=== PATIENT | female | born 1940 | race Caucasian/White ===

== ENCOUNTER 2019-07-09 10:48 | Emergency (ER) | payer OTHER ==
[~2019-07-09] VITALS: Ht 165.1 cm; Wt 74.8 kg
--- NOTE | 2019-07-09 10:50 | NUR ---
Patient to ER bed 02 to gown for evaluation. Side rails up.
[2019-07-09 11:00] VITALS: BP_SYST 124
--- NOTE | 2019-07-09 11:10 | NUR ---
ER at bedside examining patient.
--- NOTE | 2019-07-09 11:15 | NUR ---
Pt came to ER c/o LLE redness and pain. Also states having weakness and diarrhea since 07/07. Pt is currently resting and comfortable on neurourologist.
[2019-07-09] MEDS ORDERED: FER300L PO (11:18)
[2019-07-09] MEDS ORDERED: FURO-150 PO (11:18)
[2019-07-09] MEDS ORDERED: VITA-285 PO (11:18)
[2019-07-09] MEDS ORDERED: CHOL200041 PO (11:18)
[2019-07-09] MEDS ORDERED: ASA81 PO (11:18)
[2019-07-09] MEDS ORDERED: CALC200T47 PO (11:18)
[2019-07-09] MEDS ORDERED: ALLO-57 PO (11:18)
[2019-07-09] MEDS ORDERED: ARED2 PO (11:18)
[2019-07-09] MEDS ORDERED: PRAV80TA PO (11:18)
[2019-07-09] MEDS ORDERED: METO25TA3 PO (11:18)
[2019-07-09] MEDS ORDERED: LOSA25TA3 PO (11:18)
[2019-07-09] MEDS ORDERED: LEVO50TA8 PO (11:18)
[2019-07-09] MEDS ORDERED: SENN-104 PO (11:18)
[2019-07-09] MEDS ORDERED: UBID50TA3 PO (11:18)
--- NOTE | 2019-07-09 11:18 | NUR ---
Medication reconciliation completed with information provided by FAMILY. Any prior medication reconciliation on file was reviewed and corrected.
--- NOTE | 2019-07-09 11:28 | NUR ---
Bedside xray completed
[2019-07-09 11:29] LABS: BASOPHILS % (AUTO) 0.3 % (0.0-2.0); EOSINOPHILS % (AUTO) 0.1 % (0.0-4.0); HEMOGLOBIN 12.7 g/dL (12.0-16.0); LYMPHOCYTES # (AUTO) 0.6 K/uL (1.0-5.5); LYMPHOCYTES % (AUTO) 6.1 % (20.5-51.5); MEAN CORPUSCULAR HEMOGLOBIN 34 pg (27-31); MEAN CORPUSCULAR HGB CONC 34 % (32-36); MEAN CORPUSCULAR VOLUME 99 fL (79.0-98.0); MONOCYTES # (AUTO) 0.3 K/uL (0.0-1.0); MONOCYTES % (AUTO) 2.8 % (1.7-9.3); NEUTROPHILS % (AUTO) 90.7 % (40.0-70.0); PLATELET COUNT (AUTO) 115 K/uL (130-430); RED BLOOD CELL COUNT(AUTO) 3.73 MIL/uL (4.2-6.2); RED CELL DISTRIBUTION WIDTH 14.4 % (9.0-15.0); WHITE BLOOD COUNT (AUTO) 9.9 K/uL (4.8-10.8)
[2019-07-09 12:04] LABS: ANION GAP 11 (5-15); CALCIUM 8.8 mg/dL (8.4-11.0); CHLORIDE 97 mmol/L (98-107); CREATININE 2.26 mg/dL (0.55-1.30); GLUCOSE 228 mg/dL (70-99); POTASSIUM 3.8 mmol/L (3.5-5.1); SODIUM SERUM 132 mmol/L (136-145); UREA NITROGEN, BLOOD 66 mg/dL (8-21)
[2019-07-09 12:08] LABS: PROTHROMBIN TIME 9.6 SECS (9.5-12.5)
[2019-07-09 12:09] LABS: ALANINE AMINOTRANSFERASE 46 U/L (12-78); ALBUMIN 3.2 g/dL (3.4-4.8); ASPARTATE AMINOTRANSFERASE 40 U/L (10-37)
[2019-07-09 12:29] LABS: C-REACTIVE PROTEIN QUANT 39.6 mg/dL (0-0.5)
[2019-07-09] MEDS ORDERED: cefTRIAXone 1 GM in LIDOCAINE 1%, 20 ML MDV 2.1 ML IM ONE (13:00)
[2019-07-09] MEDS ORDERED: NACL 0.9% 1,000 ML IV ONE (13:00)
[2019-07-09] MEDS ORDERED: cefTRIAXone 1 GM IVPB PREMIX 50 ML IV ONE (13:00)
--- NOTE | 2019-07-09 13:18 | NUR ---
# 24 gauge angiocath placed to right hand. Use of asceptic technique. Opsite placed over site. Blood return noted. Blood for lab drawn from site. Flushed with 10 cc of normal saline. No evidence of infiltration noted. Patient tolerated well.
--- NOTE | 2019-07-09 14:01 | NUR ---
Dr. Welch speaking w/ the pt and her daughter
[2019-07-09 14:21] VITALS: BP_SYST 124
--- NOTE | 2019-07-09 14:22 | NUR ---
Patient given written and verbal discharge instructions and verbalizes understanding. ER MD discussed with patient the results and treatment provided. Patient in stable condition. ID arm band removed. IV catheter removed intact and dressing applied, no active bleeding. Rx of Clindamysin and Hollis given. Patient educated on pain management and to follow up with PMD. Pain Scale 3/10. Opportunity for questions provided and answered. Medication side effect fact sheet provided.
== END 2019-07-09 14:22 | disposition home or self-care (01) ==
LOC: SED 10:48
DX: L03.116 Cellulitis of left lower limb (principal); R53.1 Weakness; Z79.82 Long term (current) use of aspirin; Z79.899 Other long term (current) drug therapy
CPT/HCPCS: 36415; 71045; 80053; 83605; 83880; 85025; 85610; 85730; 86140; 93005; 93971; 96365; 99284; J0696; J7030

== ENCOUNTER 2019-07-12 09:01 | Inpatient (IN) | payer OTHER ==
[~2019-07-12] VITALS: Ht 165.1 cm; Wt 76.2 kg
[~2019-07-12 09:01] MED LIST: ALLO-57 PO; ARED2 PO; ASA81 PO; CALC200T47 PO; CHOL200041 PO; FER300L PO; FURO-150 PO; LEVO50TA8 PO; LOSA25TA3 PO; METO25TA3 PO; PRAV80TA PO; SENN-104 PO; UBID50TA3 PO; VITA-285 PO
[2019-07-12 09:10] VITALS: BP_SYST 135
--- NOTE | 2019-07-12 09:26 | NUR ---
Patient to ER bed 02 to gown for evaluation. Side rails up.
--- NOTE | 2019-07-12 09:33 | NUR ---
Note juan luis in ED - 07/12/19 at 0934 by [email or web address] Patient to [place] [phone] to hank for evaluation. Side rails up.
--- NOTE | 2019-07-12 09:35 | NUR ---
Patient arrived in the ED accompanied by her daughter, c/o pain and redness on the LLE. Patient was seen last Friday for it; progressively getting worse per patient. She's taking Cephalexin and Clindamycin. Denied any recent injury or trauma. Denied any fevers, chills, N/V. Patient is alert and oriented x4, respirations even and unlabored, speaking in full sentences, ambulating using a wheelchair. VSS, pain level 7/10. Daughter at bedside. Informed of the wait time. INstructed to notify ED staff for any changes in condition or worsening of symptoms. Patient verbalized understanding.
--- NOTE | 2019-07-12 09:39 | NUR ---
ER Dr. Long at bedside examining patient.
[2019-07-12] MEDS ORDERED: VANCOMYCIN HCL 1,000 MG in D5W 250 ML IV ONE (09:45)
[2019-07-12] MEDS ORDERED: PIPERACILLIN/TAZO 3.38 GM in D5W 50 ML IV ONE (09:45)
[2019-07-12] MEDS ORDERED: PIPERACILLIN/TAZOBACTAM 3.375 GM/VIAL (ZOSYN) IV ONE (10:30)
[2019-07-12] MEDS ORDERED: VANCOMYCIN HCL 1000 MG/VIAL IV ONE (10:31)
--- NOTE | 2019-07-12 10:39 | NUR ---
# 24 gauge angiocath placed to MANOLO. Use of asceptic technique. Opsite placed over site. Blood return noted. Flushed with 10 cc of normal saline. No evidence of infiltration noted. Patient tolerated well.
--- NOTE | 2019-07-12 10:40 | NUR ---
electrocardiographic technician at bedside collecting blood specimen. Patient tolerated the procedure well.
--- NOTE | 2019-07-12 10:48 | NUR ---
Administered Zosyn IVPB and Vancomycin IV per protocol as ordered by Dr. Long. Patient tolerated the medications well.
[2019-07-12 11:21] LABS: BASOPHILS % (AUTO) 0.3 % (0.0-2.0); EOSINOPHILS % (AUTO) 0.6 % (0.0-4.0); HEMATOCRIT 33.5 % (36-48); HEMOGLOBIN 11.6 g/dL (12.0-16.0); LYMPHOCYTES # (AUTO) 0.9 K/uL (1.0-5.5); LYMPHOCYTES % (AUTO) 11.2 % (20.5-51.5); MEAN CORPUSCULAR HEMOGLOBIN 34 pg (27-31); MEAN CORPUSCULAR HGB CONC 35 % (32-36); MEAN CORPUSCULAR VOLUME 99 fL (79.0-98.0); MONOCYTES # (AUTO) 0.3 K/uL (0.0-1.0); MONOCYTES % (AUTO) 3.9 % (1.7-9.3); PLATELET COUNT (AUTO) 152 K/uL (130-430); RED CELL DISTRIBUTION WIDTH 14.3 % (9.0-15.0); WHITE BLOOD COUNT (AUTO) 8.3 K/uL (4.8-10.8)
[2019-07-12 11:51] LABS: ANION GAP 11 (5-15); CALCIUM 8.8 mg/dL (8.4-11.0); CHLORIDE 99 mmol/L (98-107); CREATININE 1.21 mg/dL (0.55-1.30); GLUCOSE 212 mg/dL (70-99); POTASSIUM 3.8 mmol/L (3.5-5.1); SODIUM SERUM 134 mmol/L (136-145); UREA NITROGEN, BLOOD 28 mg/dL (8-21)
[2019-07-12 11:56] LABS: ALANINE AMINOTRANSFERASE 99 U/L (12-78); ALBUMIN 2.7 g/dL (3.4-4.8); ASPARTATE AMINOTRANSFERASE 52 U/L (10-37); TOTAL BILIRUBIN 1.1 mg/dL (0.0-1.0)
[2019-07-12 12:10] LABS: BILIRUBIN,URINE 1+ (NEGATIVE); BLOOD, URINE 2+ (NEGATIVE); CLARITY/URINE CLOUDY (CLEAR); COLOR,URINE YELLOW (YELLOW); GLUCOSE,URINE NEGATIVE (NEGATIVE); KETONES,URINE NEGATIVE (NEGATIVE); LEUKOCYTE ESTERASE ,URINE 3+ (NEGATIVE); NITRITE, URINE NEGATIVE (NEGATIVE); PH,URINE 5.5 (5.0-8.0); PROTEIN URINE 1+ (NEGATIVE); UROBILINOGEN,URINE 0.2 (0.2-1.0)
[2019-07-12 12:51] LABS: BACTERIA,URINE FEW /HPF (None Seen); RBC,URINE 20-50 /HPF (0-3); WBC,URINE 20-50 /HPF (0-3)
--- NOTE | 2019-07-12 13:10 | NUR ---
Patient will be admitted to care of DR. FLORES. Admitted to MED[facility]UR[facility] unit. Will go to room 134B. Belongings list completed. Complete and up to date summary report printed. SBAR report given to CHRISTOPHER Henderson over the phone with opportunity for questions.
--- NOTE | 2019-07-12 13:20 | NUR ---
ADMISSION PATIENT TRANSFERRED VIA GURNEY. PATIENT SHOWS NO SIGNS OF ANY DISTRESS, BREATHING IS EQUAL AND NON LABORED. EDUCATED INFORMATION ASSOC LIGHT , CALL LIGHT IS WITH PATIENT. NO OTHER NEEDS AT THIS TIME. Addendum: 07/12/19 at 1837 by Loraine Shaver RN PATIENTS GRAND DAUGHTER IS AT BED SIDE.
[2019-07-12 13:29] VITALS: BP_SYST 149
--- NOTE | 2019-07-12 14:04 | NUR ---
CONSULTATION PAGED REASON FOR CONSULTATION:CELLULITIS OF LOWER EXTREMITIES WAS CONSULT CALLED?Y PERSON WHO WAS NOTIFIED:ASHLEY CONSULTING PHYSICIAN:SHON MYLES VISUAL BASIC .NET DEVELOPER SPECIALTY:INFECTIOUS DISEASE VISUAL BASIC .NET DEVELOPER PHONE NUMBER:[phone] REQUESTING PHYSICIAN:MACEY PARKER
[2019-07-12] MEDS ORDERED: VITAMIN B COMPLEX 1 CAP/TAB PO ONE (14:15)
[2019-07-12] MEDS ORDERED: ATORVASTATIN 20 MG TABLET PO ONE (14:15)
[2019-07-12] MEDS ORDERED: CALCIUM 500 MG/TAB PO ONE (14:15)
[2019-07-12] MEDS ORDERED: ASPIRIN 81 MG TAB.CHEW PO ONE (14:15)
[2019-07-12] MEDS ORDERED: METOPROLOL SUCCINATE 25 MG TAB.SR.24H (TOPROL XL) PO ONE (14:15)
[2019-07-12] MEDS ORDERED: SENNOSIDES/DOCUSATE SODIUM 1 TAB TABLET(SENOKOT-S) PO ONE (14:15)
[2019-07-12] MEDS ORDERED: ALLOPURINOL 300 MG TABLET (ZYLOPRIM) PO ONE (14:15)
[2019-07-12] MEDS ORDERED: LEVOTHYROXINE SODIUM 0.05 MG TABLET PO ONE (14:15)
[2019-07-12] MEDS ORDERED: FERROUS SULFATE 300 MG/5 ML UDC PO ONE (14:15)
[2019-07-12] MEDS ORDERED: CHOLECALCIFEROL (VITAMIN D3) 2,000 UNIT TABLET PO ONE (14:15)
[2019-07-12] MEDS ORDERED: CEFEPIME 1 GM in D5W 50 ML IV ONE (15:00)
[2019-07-12 16:00] VITALS: BP_SYST 131
--- NOTE | 2019-07-12 16:00 | NUR ---
MEDICATIONS patient is resting in bed, educated on medications, patient verbalized understanding, no signs of distress at this time, patient tolerating well, fall/safety precautions in place.
--- NOTE | 2019-07-12 18:57 | NUR ---
closing note patient is resting in bed, no signs of distress at this time, IV dressing intact, bed in lowest position, two side rails up, call light within reach, bed alarm on, fall/safety precautions in place, will endorse report to noc shift nurse to continue with care, patient uses bedpan.
[2019-07-12 20:00] VITALS: BP_SYST 132
--- NOTE | 2019-07-12 21:15 | NUR ---
ASSIST WITH USE OF BED THOMAS URINATION YELLOW CLEAR POSITION CHANGE TOLERATED NO SOB NOTED / .
[2019-07-12] MEDS: CHOLECALCIFEROL (VITAMIN D3) 2,000 UNIT TABLET PO SCH (23:29)
[2019-07-12] MEDS: CEFEPIME 1 GM in D5W 50 ML IV SCH (23:29)
[2019-07-12] MEDS: FERROUS SULFATE 300 MG/5 ML UDC PO SCH (23:29)
[2019-07-12] MEDS: SENNOSIDES/DOCUSATE SODIUM 1 TAB TABLET(SENOKOT-S) PO SCH (23:30)
[2019-07-12] MEDS: ENOXAPARIN SODIUM 40 MG/0.4 ML SYRINGE SUBCUT SCH (23:31)
--- NOTE | 2019-07-12 23:49 | NUR ---
MAXIPIME 1 GM IVPB ADMINISTER ORDERED Patient awake alert no ADVERSE REACTION noted call BOTELLO WITH Patient .
[2019-07-12 23:53] VITALS: BP_SYST 137
--- NOTE | 2019-07-13 04:41 | NUR ---
HOURLY ROUNDING patient Resting HOB elevated call oconnor given to patient encourage position change tolerated .
[2019-07-13] MEDS: LEVOTHYROXINE SODIUM 0.05 MG TABLET PO SCH (06:06)
[2019-07-13 08:05] VITALS: BP_SYST 137
[2019-07-13] MEDS: FERROUS SULFATE 300 MG/5 ML UDC PO SCH ×2 (08:47→22:15)
[2019-07-13] MEDS: CALCIUM 500 MG/TAB PO SCH (08:48)
[2019-07-13] MEDS: VITAMIN B COMPLEX 1 CAP/TAB PO SCH (08:48)
[2019-07-13] MEDS: CHOLECALCIFEROL (VITAMIN D3) 2,000 UNIT TABLET PO SCH ×2 (08:48→22:15)
[2019-07-13] MEDS: ALLOPURINOL 300 MG TABLET (ZYLOPRIM) PO SCH (08:49)
[2019-07-13] MEDS: METOPROLOL SUCCINATE 25 MG TAB.SR.24H (TOPROL XL) PO SCH (08:49)
[2019-07-13] MEDS: SENNOSIDES/DOCUSATE SODIUM 1 TAB TABLET(SENOKOT-S) PO SCH ×2 (08:49→22:16)
[2019-07-13] MEDS: ATORVASTATIN 20 MG TABLET PO SCH (08:50)
[2019-07-13] MEDS: ASPIRIN 81 MG TAB.CHEW PO SCH (08:50)
--- NOTE | 2019-07-13 08:50 | NUR ---
Routine Scheduled medications given per order. Patient resting comfortably in bed with no distress noted. Patient stable at this time.
--- NOTE | 2019-07-13 10:26 | NUR ---
Nutrition Update Simone Scale 18 noted. Pt admitted for cellulitis. Diet: regular, cardiac BMI: 28 kg/m2 RD to follow per nutrition care standards.
[2019-07-13 12:25] VITALS: BP_SYST 134; BP_SYST 150
[2019-07-13] MEDS: CEFEPIME 1 GM in D5W 50 ML IV SCH ×2 (12:28→23:30)
--- NOTE | 2019-07-13 12:51 | NUR ---
Wound Evaluation: Wound Consult ordered for Low Simone Score. Patient evaluated for a low Simone score of 18. Patient was awake, alert, oriented and received in a Salvador Bed with an IsoFlex ELISABETH mattress. Patient is able to turn in bed independently. Recommend encourage and assist patient as needed every 2 hours with pillow support. Elevate, off-load and float bilateral heels with pillows. Offload pressure areas with pillows for pressure re-distribution. Perform skin care and monitor skin integrity Q shift. Use moisture barrier cream on moisture susceptible areas QID and PRN for soiling. Place patient on a low air-loss mattress. Skin assessment: 1. Left lower extremity, inferior to knee: Cellulitis, present on admission. Extremity has erythema, calor, and mild nonpitting edema. No odor, no drainage. Recommend: No dressing needed. Continue to monitor extremity every shift. Elevate extremity. Have patient do ankle pumps 10 every hour while awake. 2. Left posterior mid calf: Wound with black scab. No odor, no drainage. Periwound intact. Wound measures 0.8 cm x 0.3 cm. 3. Left posterior mid calf, inferior to Site 2: Wound with black scab. No odor, no drainage. Periwound intact. Wound measures 1.5 cm x 0.4 cm. Recommend: No dressings needed. Continue to monitor sites every shift.
[2019-07-13] MEDS: VANCOMYCIN HCL 1,000 MG in NS 250 ML IV SCH (13:58)
[2019-07-13] MEDS: UBIDECARENONE 100 MG PO SCH (14:00)
[2019-07-13 16:30] VITALS: BP_SYST 134
--- NOTE | 2019-07-13 17:20 | NUR ---
Nutrition Assessment (short note d/t high patient load) A - RD reviewed pertinent nutrition-related info via EMR (physician notes/nursing notes/labs/meds/nursing care trends/care activity). Admission Dx: Cellulitis Pt also found w/ moderate malnutrition per physician notes PMH: HTN, CAD, HLD, gouty arthritis per physician notes Current Diet Order/Nutrition Support: Regular, cardiac x1 day Ht: 5'5" Wt: 167#/76 kg IBW: 125#/57 kg %IBW: 133% UBW: 167#/76 kg %UBW: 100% BMI: 28 kg/m2 (normal -- appropriate for geriatric age) Subjective Info: Nutrition Consult received for L leg cellulitis. Pt seen resting in bed, recently had BM in bed dave this afternoon. RD notified BLASTING WORKER. Pt reported lack of appetite d/t excessive portion sizes. RD recommended to cut portion in half -- pt agreeable. RD modified order in [employer]. Pt reported several vitamin supplementation for general health, but pt was unable to disclose specifics. Anthropometrics verified. No PUs noted, but pt has L leg cellulitis per EMR review. Pt attested to regular diet at home, and no chewing/swallowing difficulties. Pt usually eats 3 small meals throughout the day. Pt declined nutrition education. ESTIMATED NUTRITIONAL NEEDS CALORIES/DAY: 5098-6081 kcal/day (25-30 kcal/kg Adj IBW for geriatric maintenance) PROTEIN/DAY: 74-93 gm/day (1.2-1.5 gm/kg Adj IBW for infection) FLUID/DAY: 1.6-1.9 L/day (1 ml/kcal/day for maintenance) D - Suboptimal PO intakes related to lack of appetite as evidenced by pt report and inability to meet estimated nutritional requirements. I - Recommend continuing regular, cardiac diet. Encourage increase PO intakes. M - Monitor appetite and PO intakes w/ goal of pt meeting at least 75% of estimated nutritional needs, labs trending WNL, normal GI function, and skin integrity/wt maintenance E -Moderate risk; F/U within 3-5 days Addendum: 07/14/19 at [address] CORRECTION: I - Recommend continuing regular, cardiac diet. Encourage increase PO intakes. Consider HgA1c lab draw.
--- NOTE | 2019-07-13 17:25 | NUR ---
Dietitian Recommendations * Recommend continuing regular, cardiac diet. Encourage increase PO intakes. GUNNAR, RD Please refer to Nutrition Assessment for details. Addendum: 07/14/19 at [address] CORRECTION: * Recommend continuing regular, cardiac diet. Encourage increase PO intakes. Consider HgA1c lab draw.
[2019-07-13 19:45] VITALS: BP_SYST 135
--- NOTE | 2019-07-13 19:54 | NUR ---
Patient awake HOB elevated assist encourage position change off loading with pillows comfort measures implemented call oconnor given to patient .
[2019-07-13] MEDS: ENOXAPARIN SODIUM 40 MG/0.4 ML SYRINGE SUBCUT SCH (22:17)
[2019-07-13] MEDS: ACETAMINOPHEN 325 MG TABLET PO PRN (23:28)
[2019-07-13 23:44] VITALS: BP_SYST 132
--- NOTE | 2019-07-13 23:46 | NUR ---
NEW ORDERS DR MARK DALAL FOR PAIN MEDICATION .
--- NOTE | 2019-07-13 23:47 | NUR ---
TYLENOL 650 MG PO GIVEN FOR GENERAL PAIN CONTROL 09/20 CONTINUE TO MONITOR .
--- NOTE | 2019-07-14 02:54 | NUR ---
HOURLY ROUNDING patient Resting call oconnor with Patient chest movement symmetrical verbally Responsive .
[2019-07-14] MEDS: LEVOTHYROXINE SODIUM 0.05 MG TABLET PO SCH (06:08)
--- NOTE | 2019-07-14 07:15 | NUR ---
OPENING NOTE RECEIVED PT RESTING IN BED. CHEST RISE AND FALL NOTED. NO ACUTE DISTRESS NOTED. IV INTACT AND PATENT. NO SIGNS OF INFILTRATION. BED IN LOWEST AND LOCKED POSITION. CALL LIGHT IN REACH. ALL NEEDS MET. CONTINUE TO MONITOR.
[2019-07-14 08:00] VITALS: BP_SYST 120
[2019-07-14] MEDS: UBIDECARENONE 100 MG PO SCH (09:00)
[2019-07-14 09:04] LABS: ALANINE AMINOTRANSFERASE 84 U/L (12-78); ALBUMIN 2.3 g/dL (3.4-4.8); ANION GAP 7 (5-15); ASPARTATE AMINOTRANSFERASE 37 U/L (10-37); CALCIUM 9.1 mg/dL (8.4-11.0); CHLORIDE 99 mmol/L (98-107); CREATININE 1.12 mg/dL (0.55-1.30); GLUCOSE 147 mg/dL (70-99); POTASSIUM 3.6 mmol/L (3.5-5.1); SODIUM SERUM 130 mmol/L (136-145); TOTAL BILIRUBIN 0.8 mg/dL (0.0-1.0); UREA NITROGEN, BLOOD 24 mg/dL (8-21)
--- NOTE | 2019-07-14 09:30 | NUR ---
MD MYLES PAGED FOR CONSULT; AWAITING FOR CALL BACK
[2019-07-14] MEDS: FERROUS SULFATE 300 MG/5 ML UDC PO SCH ×2 (10:00→20:52)
[2019-07-14] MEDS: CHOLECALCIFEROL (VITAMIN D3) 2,000 UNIT TABLET PO SCH ×2 (10:00→20:52)
[2019-07-14] MEDS: VITAMIN B COMPLEX 1 CAP/TAB PO SCH (10:00)
[2019-07-14] MEDS: ALLOPURINOL 300 MG TABLET (ZYLOPRIM) PO SCH (10:00)
[2019-07-14] MEDS: ATORVASTATIN 20 MG TABLET PO SCH (10:01)
[2019-07-14] MEDS: CALCIUM 500 MG/TAB PO SCH (10:01)
[2019-07-14] MEDS: SENNOSIDES/DOCUSATE SODIUM 1 TAB TABLET(SENOKOT-S) PO SCH ×2 (10:01→20:52)
[2019-07-14] MEDS: ASPIRIN 81 MG TAB.CHEW PO SCH (10:01)
[2019-07-14] MEDS: METOPROLOL SUCCINATE 25 MG TAB.SR.24H (TOPROL XL) PO SCH (10:01)
--- NOTE | 2019-07-14 10:02 | NUR ---
meds VITAL SIGNS STABLE. ALL DUE MEDS ADMINISTERED ORDERED, BHAVNA WELL. TEACHING DONE ON MEDICATION AND ASE. ALL NEEDS MET. CONT TO MONITOR
[2019-07-14] MEDS: VANCOMYCIN HCL 1,000 MG in NS 250 ML IV SCH (11:12)
--- NOTE | 2019-07-14 11:29 | NUR ---
MEDS MEDICATIONS ADMINISTERED ORDERED PER MD. TOLERATING WELL. EDUCATION PROVIDED. NO ACUTE DISTRESS NOTED. ALL NEEDS MET. CALL LIGHT IN REACH. FALL AND ASPIRATION PRECAUTIONS IN PLACE. CONTINUE TO MONITOR.
[2019-07-14 12:00] VITALS: BP_SYST 139
[2019-07-14] MEDS: CEFEPIME 1 GM in D5W 50 ML IV SCH (13:11)
--- NOTE | 2019-07-14 13:17 | NUR ---
MEDS MEDICATIONS ADMINISTERED ORDERED PER MD. TOLERATING WELL. EDUCATION GIVEN. NO ACUTE DISTRESS NOTED. ALL NEEDS MET. CALL LIGHT IN REACH. WILL CONTINUE TO MONITOR.
--- NOTE | 2019-07-14 13:30 | NUR ---
SEEN AND EXAMINED BY AT BEDSIDE
[2019-07-14] MEDS: ACETAMINOPHEN 325 MG TABLET PO PRN ×2 (13:59→20:53)
--- NOTE | 2019-07-14 15:40 | NUR ---
NOTE PATIENT STABLE. ASSISTED PATIENT WITH BEDPAN, BHAVNA WELL. SISTER AT BEDSIDE. ALL NEEDS MET. CONT TO MONITOR. CALL LIGHT IN REACH. CONT TO MONITOR
--- NOTE | 2019-07-14 16:30 | NUR ---
WOUND CARE WOUND CARE PROVIDED ORDERED, BHAVNA WELL. CONT TO ELEVATE BILATERAL FEET HEELS ON PILLOWS, BHAVNA WELL. ALL NEEDS MET. CONT TO MONITOR
[2019-07-14 16:59] VITALS: BP_SYST 147
--- NOTE | 2019-07-14 18:57 | NUR ---
CLOSING NOTE PATIENT AWAKE IN BED. STABLE. NO ACUTE DISTRESS. NO SOB. RESPIRATION EVEN AND UNLABORED. SKIN WARM AND DRY TO TOUCH. IV INTACT AND PATENT. CONT TO ELEVATE BILATERAL HEELS. ALL NEEDS MET. CALL LIGHT IN REACH. BED IN LOW AND LOCKED POSITION. SIDERAIL UPX2. WILL ENDORSE TO ONCOMING SHIFT.
[2019-07-14 19:00] VITALS: BP_SYST 145
[2019-07-14 20:00] VITALS: BP_SYST 135
[2019-07-14] MEDS: ENOXAPARIN SODIUM 40 MG/0.4 ML SYRINGE SUBCUT SCH (20:55)
[2019-07-15] VITALS: BP_SYST 146
[2019-07-15] MEDS: CEFEPIME 1 GM in D5W 50 ML IV SCH ×3 (00:33→23:58)
[2019-07-15] MEDS: LEVOTHYROXINE SODIUM 0.05 MG TABLET PO SCH (06:57)
--- NOTE | 2019-07-15 08:00 | NUR ---
RECEIVED AWAKE AND IN NO C/O DISCOMFORT.VSS RESP EVEN AND UNLABORED RECEIVING IV ABX USES BEDPAN WELL CELLULITIS TO LT LEG NOTED.TAKES DIET WELL CONTINUE TO MONITOR CALL BOTELLO IN PLACE
[2019-07-15] MEDS: CHOLECALCIFEROL (VITAMIN D3) 2,000 UNIT TABLET PO SCH ×2 (09:00→20:26)
[2019-07-15] MEDS: SENNOSIDES/DOCUSATE SODIUM 1 TAB TABLET(SENOKOT-S) PO SCH ×2 (09:32→20:26)
[2019-07-15] MEDS: FERROUS SULFATE 300 MG/5 ML UDC PO SCH ×2 (09:32→20:26)
[2019-07-15] MEDS: CALCIUM 500 MG/TAB PO SCH (09:32)
[2019-07-15] MEDS: VITAMIN B COMPLEX 1 CAP/TAB PO SCH (09:32)
[2019-07-15] MEDS: ATORVASTATIN 20 MG TABLET PO SCH (09:32)
[2019-07-15] MEDS: METOPROLOL SUCCINATE 25 MG TAB.SR.24H (TOPROL XL) PO SCH (09:33)
[2019-07-15] MEDS: ALLOPURINOL 300 MG TABLET (ZYLOPRIM) PO SCH (09:34)
[2019-07-15] MEDS: ASPIRIN 81 MG TAB.CHEW PO SCH (09:34)
[2019-07-15] MEDS: UBIDECARENONE 100 MG PO SCH (09:34)
[2019-07-15] MEDS: VANCOMYCIN HCL 1,000 MG in NS 250 ML IV SCH (11:32)
--- NOTE | 2019-07-15 12:00 | NUR ---
REMAINS IN NO C/O PAIN AND RECEIVING ABX CONTINUE TO MONITOR CALL BOTELLO IN PLACE
[2019-07-15 12:55] VITALS: BP_SYST 109
[2019-07-15 16:52] VITALS: BP_SYST 130
[2019-07-15 19:00] VITALS: BP_SYST 121
--- NOTE | 2019-07-15 19:32 | NUR ---
report to night rn given
[2019-07-15] MEDS: ENOXAPARIN SODIUM 40 MG/0.4 ML SYRINGE SUBCUT SCH (20:28)
[2019-07-16 01:47] VITALS: BP_SYST 130
[2019-07-16] MEDS: LEVOTHYROXINE SODIUM 0.05 MG TABLET PO SCH (06:03)
--- NOTE | 2019-07-16 07:06 | NUR ---
wound care order for the left lower leg cellulitis as noted open area and flaky dryness that needs treatment,elevated with pillow
[2019-07-16 07:52] VITALS: BP_SYST 137
--- NOTE | 2019-07-16 08:00 | NUR ---
Left leg cellulitis is red trace of edema skin intact denies any pain , kept left leg elevated to pillow .
[2019-07-16] MEDS: SENNOSIDES/DOCUSATE SODIUM 1 TAB TABLET(SENOKOT-S) PO SCH (08:03)
[2019-07-16] MEDS: FERROUS SULFATE 300 MG/5 ML UDC PO SCH (08:03)
[2019-07-16] MEDS: ATORVASTATIN 20 MG TABLET PO SCH (08:03)
[2019-07-16] MEDS: ALLOPURINOL 300 MG TABLET (ZYLOPRIM) PO SCH (08:03)
[2019-07-16] MEDS: CALCIUM 500 MG/TAB PO SCH (08:03)
[2019-07-16] MEDS: VITAMIN B COMPLEX 1 CAP/TAB PO SCH (08:03)
[2019-07-16] MEDS: CHOLECALCIFEROL (VITAMIN D3) 2,000 UNIT TABLET PO SCH (08:03)
[2019-07-16] MEDS: METOPROLOL SUCCINATE 25 MG TAB.SR.24H (TOPROL XL) PO SCH (08:04)
[2019-07-16] MEDS: ASPIRIN 81 MG TAB.CHEW PO SCH (08:08)
[2019-07-16] MEDS: UBIDECARENONE 100 MG PO SCH (08:08)
[2019-07-16] MEDS: VANCOMYCIN HCL 1,000 MG in NS 250 ML IV SCH (11:02)
[2019-07-16 11:25] VITALS: BP_SYST 128
[2019-07-16] MEDS: CEFEPIME 1 GM in D5W 50 ML IV SCH (13:32)
--- NOTE | 2019-07-16 14:00 | NUR ---
Mobility Ambulates to hallway using FWW tolerates well with out dizziness generalized weakness.
[2019-07-16] MEDS ORDERED: SEPTRA DS PO (14:55)
[2019-07-16 15:00] VITALS: BP_SYST 145
--- NOTE | 2019-07-16 15:20 | NUR ---
D/C Patient Patient given medication reconciliation form and D/C instructions. Exit Care provided. Patient verbalized understanding. MD discussed with patient the results and treatment provided. Ambulatory with using walker steady gait for discharge to home. Patient in stable condition, ID band removed. IV catheter removed, intact and dressing applied, no active bleeding. Rx Septra tablet given. Patient educated on pain management. All belongings sent with patient.
[2019-07-16] MEDS ORDERED: LABETALOL 100 MG/ 20ML VIAL ONE (21:05)
== END 2019-07-16 15:33 | disposition home or self-care (01) | DRG 603 ==
LOC: SED 09:01 → SMU 12:56
PROVIDERS: ADMIT Family Medicine; ATTEND Family Medicine
DX: L03.116 Cellulitis of left lower limb (principal); N39.0 Urinary tract infection, site not specified; E44.0 Moderate protein-calorie malnutrition; E03.9 Hypothyroidism, unspecified; I25.10 Atherosclerotic heart disease of native coronary artery without angina pectoris; E78.5 Hyperlipidemia, unspecified; M72.9 Fibroblastic disorder, unspecified; M10.9 Gout, unspecified; I50.9 Heart failure, unspecified; I11.0 Hypertensive heart disease with heart failure; Z68.28 Body mass index [BMI] 28.0-28.9, adult; Z79.899 Other long term (current) drug therapy; Z90.710 Acquired absence of both cervix and uterus; Z95.1 Presence of aortocoronary bypass graft; Z79.82 Long term (current) use of aspirin
CPT/HCPCS: 36415; 76700-TC; 80053; 80202-TC; 81000-TC; 83605; 85025; 87040-TC; 96365; 96368; 99285; J0692; J1650; J2543; J3370; J3490; J7050; J7060